=== PATIENT | female | born 1995 ===

== ENCOUNTER → 2020-11-03 | Outpatient (CLI) | payer BC | END | disposition home or self-care (01) | LOC: LAB SHORT 14:40 → LAB 14:40 | PROVIDERS: Family Medicine | DX: Z01.419 Encounter for gynecological examination (general) (routine) without abnormal findings (principal) | CPT/HCPCS: G0123 ==

== ENCOUNTER → 2023-01-20 | Outpatient (CLI) | payer BC | LOC: LAB 15:00 → LAB SHORT 15:00 | PROVIDERS: Family Medicine | DX: Z01.419 Encounter for gynecological examination (general) (routine) without abnormal findings (principal) | CPT/HCPCS: G0145 ==